=== PATIENT | male | born 1975 | race Caucasian/White ===

== ENCOUNTER 2018-02-01 14:50 | Emergency (ER) | payer MEDICAID ==
[~2018-02-01] VITALS: Ht 170.2 cm; Wt 76.2 kg
[~2018-02-01 14:50] MED LIST: CALA180L2 TP; CLOT15CR74 TP; DIPH25CA83 PO; ONDA8TAB9 PO
[2018-02-01 15:03] VITALS: BP 118/75
[2018-02-01] MEDS ORDERED: BENZ-16 PO (15:54)
[2018-02-01] MEDS ORDERED: AZIT-57 PO (15:54)
[2018-02-01] MEDS ORDERED: ALBU8HFA PO (15:54)
== END 2018-02-01 16:01 | disposition home or self-care (01) ==
LOC: ER 14:51
DX: J40 Bronchitis, not specified as acute or chronic (principal); F15.10 Other stimulant abuse, uncomplicated; Z59.0 Homelessness; Z79.899 Other long term (current) drug therapy
CPT/HCPCS: 93005; 96372; 99283

== ENCOUNTER 2018-08-18 11:32 | Emergency (ER) | payer MEDICAID ==
[~2018-08-18] VITALS: Ht 170.2 cm; Wt 72.2 kg
[2018-08-18 11:49] VITALS: BP 173/94
[2018-08-18] MEDS ORDERED: CLIN150C8 PO (12:10)
== END 2018-08-18 12:27 | disposition home or self-care (01) ==
LOC: ER 11:32
DX: K08.89 Other specified disorders of teeth and supporting structures (principal); F15.90 Other stimulant use, unspecified, uncomplicated; Z56.0 Unemployment, unspecified
CPT/HCPCS: 99283

== ENCOUNTER 2018-12-19 06:28 | Emergency (ER) | payer MEDICAID ==
[~2018-12-19] VITALS: Ht 170.2 cm; Wt 75.0 kg
[~2018-12-19 06:28] MED LIST changes: +CLIN150C8 PO
[2018-12-19 06:37] VITALS: BP 127/80
[2018-12-19] MEDS ORDERED: METH4TAB3 PO (06:49)
[2018-12-19] MEDS ORDERED: predniSONE 20 mg tablet PO ONE (06:50)
[2018-12-19] MEDS ORDERED: diphenhydrAMINE 25mg capsule PO ONE (06:50)
== END 2018-12-19 07:24 | disposition home or self-care (01) ==
LOC: ER 06:29
DX: L23.7 Allergic contact dermatitis due to plants, except food (principal); F15.90 Other stimulant use, unspecified, uncomplicated; Z72.89 Other problems related to lifestyle; Z59.0 Homelessness
CPT/HCPCS: 99283; J7512; Q0163

== ENCOUNTER 2021-09-13 02:39 | Emergency (ER) | payer MEDICAID ==
[~2021-09-13] VITALS: Ht 170.2 cm; Wt 80.9 kg
[~2021-09-13 02:39] MED LIST changes: +METH4TAB3 PO
[2021-09-13 02:51] VITALS: BP 143/90
[2021-09-13] MEDS ORDERED: ketorolac trometh inj. 60 MG/2 ML VIAL IM ONE (04:50)
== END 2021-09-13 05:16 | disposition home or self-care (01) ==
LOC: ER 02:39
DX: M54.50 Low back pain, unspecified (principal); G89.29 Other chronic pain; F15.90 Other stimulant use, unspecified, uncomplicated; Z72.89 Other problems related to lifestyle; Z59.00 Homelessness unspecified; Z79.2 Long term (current) use of antibiotics; Z79.899 Other long term (current) drug therapy
CPT/HCPCS: 96372; 99283; J1885

== ENCOUNTER 2022-12-18 20:28 | Emergency (ER) | payer MEDICAID ==
[~2022-12-18] VITALS: Ht 170.2 cm; Wt 77.3 kg
[2022-12-18] MEDS ORDERED: normal saline 1000ML IV soln IV ONE (21:00)
[2022-12-18] MEDS ORDERED: piperacillin/tazo 3.375gm/50ml 50 ML IV ONE (21:00)
[2022-12-18 21:49] LABS: BASOPHILS # (AUTO) 0.1 X10'3 (0-0.2); BASOPHILS % (AUTO) 0.8 % (0-1); EOSINOPHILS # (AUTO) 0.3 X10'3 (0-0.9); EOSINOPHILS % (AUTO) 2.8 % (0-6); HEMATOCRIT 40.9 % (42.0-52.0); HEMOGLOBIN 13.7 g/dl (14.0-17.9); LYMPHOCYTES # (AUTO) 2.2 X10'3 (1.1-4.8); LYMPHOCYTES % (AUTO) 21.9 % (21-51); MEAN CORPUSCULAR HEMOGLOBIN 30.5 PG (27.0-31.0); MEAN CORPUSCULAR HGB CONC 33.4 g/dL (33.0-36.5); MEAN CORPUSCULAR VOLUME 91.4 FL (78-98); MEAN PLATELET VOLUME 7.3 FL (7.4-10.4); MONOCYTES # (AUTO) 0.7 X10'3 (0-0.9); MONOCYTES % (AUTO) 7.3 % (2-12); NEUTROPHILS # (AUTO) 6.8 X10'3 (1.8-7.7); NEUTROPHILS % (AUTO) 67.2 % (42-75); PLATELET COUNT 365 X10'3 (140-440); RED BLOOD COUNT 4.48 X10'6 (4.70-6.10); RED CELL DISTRIBUTION WIDTH 12.7 % (11.5-14.5); WHITE BLOOD COUNT 10.2 X10'3 (4.5-11.0)
[2022-12-18 22:06] LABS: ALANINE AMINOTRANSFERASE 28 U/L (12-78); ALBUMIN 3.5 G/DL (3.4-5.0); ALBUMIN/GLOBULIN RATIO 0.9 (1.1-1.5); ALKALINE PHOSPHATASE 141 IU/L (46-116); ANION GAP 9 (8-16); ASPARTATE AMINO TRANSFERASE 22 U/L (10-37); BILIRUBIN,TOTAL 0.3 MG/DL (0.1-1.0); BLOOD UREA NITROGEN 20 MG/DL (7-18); BUN/CREATININE RATIO 17.5 (5.4-32.0); CALCIUM 8.5 MG/DL (8.5-10.1); CHLORIDE 104 MMOL/L (99-107); CREATININE 1.14 MG/DL (0.60-1.10); GLUCOSE 128 MG/DL (70-104); MAGNESIUM 2.1 MG/DL (1.5-2.4); POTASSIUM 3.7 MMOL/L (3.5-5.1); SODIUM 140 MMOL/L (135-145); TOTAL CARBON DIOXIDE 27.5 MMOL/L (24-32); TOTAL PROTEIN 7.3 G/DL (6.4-8.2); eGFR 69 ML/MIN
[2022-12-18 22:32] LABS: ETHANOL < 0.010 GM/DL (0.0-0.010)
[2022-12-18] MEDS ORDERED: SULF1TAB49 PO (22:49)
--- NOTE | 2022-12-18 23:55 | NUR ---
Patient given 3 days of dressing supplies at request of provider. Patient cleared for discharge post IVF completion.
[2022-12-19 00:07] VITALS: BP 149/82
== END 2022-12-19 00:09 | disposition home or self-care (01) ==
LOC: ER 20:29
DX: L03.115 Cellulitis of right lower limb (principal); E86.0 Dehydration; F41.9 Anxiety disorder, unspecified; F32.9 Major depressive disorder, single episode, unspecified; F17.200 Nicotine dependence, unspecified, uncomplicated; F12.90 Cannabis use, unspecified, uncomplicated; F15.90 Other stimulant use, unspecified, uncomplicated; Z59.00 Homelessness unspecified; Z60.2 Problems related to living alone; Z56.0 Unemployment, unspecified; Z79.899 Other long term (current) drug therapy
CPT/HCPCS: 36415; 71045; 80053; 80320; 83605; 83735; 84145; 85025; 87040; 93005; 96365; 99285; J2543; J7030

== ENCOUNTER 2022-12-31 01:08 | Emergency (ER) | payer MEDICAID ==
[~2022-12-31] VITALS: Ht 170.2 cm; Wt 72.7 kg
[2022-12-31 01:18] VITALS: BP 149/88
[2022-12-31] MEDS ORDERED: ketorolac trometh inj. 60 MG/2 ML VIAL IM ONE (02:00)
[2022-12-31] MEDS ORDERED: SULF1TAB49 PO (02:00)
== END 2022-12-31 02:22 | disposition home or self-care (01) ==
LOC: ER 01:10
DX: S61.401A Unspecified open wound of right hand, initial encounter (principal); S81.801A Unspecified open wound, right lower leg, initial encounter; M54.9 Dorsalgia, unspecified; F41.9 Anxiety disorder, unspecified; F32.9 Major depressive disorder, single episode, unspecified; F12.90 Cannabis use, unspecified, uncomplicated; F15.90 Other stimulant use, unspecified, uncomplicated; Z59.00 Homelessness unspecified; Z76.0 Encounter for issue of repeat prescription; Z56.0 Unemployment, unspecified; Z60.2 Problems related to living alone; Z79.899 Other long term (current) drug therapy; X58.XXXA Exposure to other specified factors, initial encounter; Y93.89 Activity, other specified; Y92.89 Other specified places as the place of occurrence of the external cause; Y99.8 Other external cause status
CPT/HCPCS: 96372; 99283; J1885